=== PATIENT | male | born 1985 | race Caucasian/White ===

== ENCOUNTER 2018-06-25 15:38 | Emergency (ER) | payer MEDICAID ==
[~2018-06-25] VITALS: Ht 170.2 cm; Wt 109.1 kg
[2018-06-25 15:42] VITALS: Ht 170.2 cm; Wt 109.1 kg
[2018-06-25] MEDS ORDERED: INDOCIN25 MG PO (15:44)
[2018-06-25] MEDS ORDERED: COLCRYS0.6 MG PO (15:45)
[2018-06-25] MEDS ORDERED: TORADOL10 MG PO (18:19)
[2018-06-25] MEDS ORDERED: VIBRAMYCIN 100100 MG PO (18:19)
[2018-06-25 18:28] VITALS: BP 128/68
== END 2018-06-25 18:30 | disposition home or self-care (01) ==
LOC: D.ER 15:38
DX: L02.611 Cutaneous abscess of right foot (principal)